=== PATIENT | female | born 1985 ===

== ENCOUNTER 2019-01-13 19:30 | Inpatient (IN) | payer OTHER ==
[~2019-01-13] VITALS: Ht 170.2 cm; Wt 97.2 kg
[2019-01-13] MEDS ORDERED: Verotin-Gr Cap1 EACH (20:34)
[2019-01-13 20:37] LABS: BASOPHILS ABSOLUTE AUTO 0.02 K/mm3 (0.00-0.23); BASOPHILS PERCENT AUTO 0 % (0-2); EOSINOPHILS PERCENT AUTO 1 % (0-6); Hematocrit 39.3 % (33.0-51.0); Hemoglobin 12.9 g/dL (11.5-16.0); IMMATURE GRAN ABSOLUTE AUTO 0.02 K/mm3 (0.00-0.10); IMMATURE GRAN PERCENT AUTO 0 % (0-1); LYMPHOCYTES ABSOLUTE AUTO 2.81 K/mm3 (0.84-5.20); LYMPHOCYTES PERCENT AUTO 29 % (21-46); MONOCYTES PERCENT AUTO 10 % (4-13); Mean Corpuscular HGB 31.9 pg (26.0-34.0); Mean Corpuscular HGB Conc 32.8 g/dL (31.5-36.5); Mean Corpuscular Volume 97 fL (80-100); Mean Platelet Volume 11.9 fL (9.1-12.4); NEUTROPHILS ABSOLUTE AUTO 5.66 K/mm3 (1.96-9.15); NEUTROPHILS PERCENT AUTO 59 % (41-73); Platelet Count 185 K/mm3 (150-400); RDW Standard Deviation 50.4 fL (35.1-46.3); Red Blood Cell Count 4.04 M/mm3 (3.80-5.20); White Blood Cell Count 9.61 K/mm3 (4.00-11.30)
--- NOTE | 2019-01-14 07:15 | NUR ---
ASSUMED PT CARE. PT IN BED HAS NOVI ON TRACING IS REACTIVE, PT IS HAVING UC'S Q 1 1/2-4 MINUTES, PT REPORTS FEELING THEM. PT'S JORGE ALBERTO AT SIDE. LOTS OF TEACHING RELATEED TO LABOR, AUGMENTING, EPIDURALS. PT HAS LAST DELIVERY WITHOUT EPIDURAL, MIGHT BE INTRESTED IN ONE THIS THIME, BUT UNSURE. IS MANAGING HER CARE. BOTH PT AND HER ARE APPROP AND KIND. HX REVIEWED.
--- NOTE | 2019-01-14 08:09 | NUR ---
PT UP TO SHOWER, JOSE CHANGED, NEW GOWN GIVEN. PT DOING OWN SELF CARE. IV WRAPPED, NOVI BATTERY APPLIED.
--- NOTE | 2019-01-14 18:53 | NUR ---
REPAIR STARTED AT 0840. NB AT BR.
--- NOTE | 2019-01-14 19:00 | NUR ---
REPORT TO ONCOMING SHIFT, NO ACUTE CHANGES, PT BRF NB WELL. BEDSIDE REPORT GIVEN TO LITTLE CERVANTES. FF, -2, SCANT BLEEDING. TEACHING ABOUT GETIING UP FOR THE FIRST, BLEEDING AND FEEDING SCHEDULE OF NB.
--- NOTE | 2019-01-14 22:45 | NUR ---
ASSUMED CARE AT [id number] FROM JEYSONRN
[2019-01-15 06:08] LABS: BASOPHILS ABSOLUTE AUTO 0.04 K/mm3 (0.00-0.23); BASOPHILS PERCENT AUTO 0 % (0-2); EOSINOPHILS ABSOLUTE AUTO 0.05 K/mm3 (0.00-0.68); EOSINOPHILS PERCENT AUTO 0 % (0-6); Hematocrit 38.5 % (33.0-51.0); Hemoglobin 12.6 g/dL (11.5-16.0); IMMATURE GRAN ABSOLUTE AUTO 0.05 K/mm3 (0.00-0.10); IMMATURE GRAN PERCENT AUTO 0 % (0-1); LYMPHOCYTES ABSOLUTE AUTO 1.88 K/mm3 (0.84-5.20); LYMPHOCYTES PERCENT AUTO 15 % (21-46); MONOCYTES ABSOLUTE AUTO 1.22 K/mm3 (0.16-1.47); MONOCYTES PERCENT AUTO 10 % (4-13); Mean Corpuscular HGB 31.7 pg (26.0-34.0); Mean Corpuscular HGB Conc 32.7 g/dL (31.5-36.5); Mean Corpuscular Volume 97 fL (80-100); NEUTROPHILS ABSOLUTE AUTO 9.25 K/mm3 (1.96-9.15); NEUTROPHILS PERCENT AUTO 74 % (41-73); Platelet Count 161 K/mm3 (150-400); RDW Coefficient Variation 13.9 % (11.7-14.2); RDW Standard Deviation 49.5 fL (35.1-46.3); Red Blood Cell Count 3.97 M/mm3 (3.80-5.20); White Blood Cell Count 12.49 K/mm3 (4.00-11.30)
--- NOTE | 2019-01-15 13:44 | NUR ---
RX FOR STOOL SOFTNER AND WHITE'S GIVEN TO PTLinda PEDERSON ALSO CALLED INTO PHARMACY
--- NOTE | 2019-01-15 20:13 | NUR ---
RN REVIEWED DISCHARGE PAPERWORK WITH PT AND S.O.. BANDS WERE MATCHED WITH BABY AND PT DENIES ANY QUESTIONS OR CONCERNS AT THIS TIME. RN WALKED PT OUT TO VEHICLE WITH NB.
== END 2019-01-15 20:00 | disposition home or self-care (01) | DRG 807 ==
LOC: BC 19:30
PROVIDERS: ADMIT Obstetrics & Gynecology
PROC: 3E0P7VZ Introduction of Hormone into Female Reproductive, Via Natural or Artificial Opening (ICD-10-PCS; 2019-01-13)
PROC: 10E0XZZ Delivery of Products of Conception, External Approach (ICD-10-PCS; principal; 2019-01-14)
PROC: 10907ZC Drainage of Amniotic Fluid, Therapeutic from Products of Conception, Via Natural or Artificial Opening (ICD-10-PCS; 2019-01-14)
PROC: 3E033VJ Introduction of Other Hormone into Peripheral Vein, Percutaneous Approach (ICD-10-PCS; 2019-01-14)
PROC: 0KQM0ZZ Repair Perineum Muscle, Open Approach (ICD-10-PCS; 2019-01-14)
DX: O24.420 Gestational diabetes mellitus in childbirth, diet controlled (principal); Z37.0 Single live birth; Z3A.39 39 weeks gestation of pregnancy; O70.1 Second degree perineal laceration during delivery; O77.0 Labor and delivery complicated by meconium in amniotic fluid
CPT/HCPCS: 36415; 85025; 86900; 86901; J2590; J7120

== ENCOUNTER 2020-06-07 07:16 | Day surgery (SDC) | payer BC ==
[~2020-06-07] VITALS: Ht 170.2 cm; Wt 86.1 kg
[~2020-06-07 07:16] MED LIST: Verotin-Gr Cap1 EACH
== END 2020-06-07 09:32 | disposition home or self-care (01) ==
LOC: ORSCSDS 07:16
PROVIDERS: Student in an Organized Health Care Education/Training Program
PROC: 0DBN8ZX Excision of Sigmoid Colon, Via Natural or Artificial Opening Endoscopic, Diagnostic (ICD-10-PCS; principal; 2020-06-07 08:30)
PROC: 0DBB8ZX Excision of Ileum, Via Natural or Artificial Opening Endoscopic, Diagnostic (ICD-10-PCS; principal; 2020-06-07 08:30)
PROC: 0DBK8ZX Excision of Ascending Colon, Via Natural or Artificial Opening Endoscopic, Diagnostic (ICD-10-PCS; principal; 2020-06-07 08:30)
PROC: 0DBH8ZX Excision of Cecum, Via Natural or Artificial Opening Endoscopic, Diagnostic (ICD-10-PCS; principal; 2020-06-07 08:30)
DX: K62.5 Hemorrhage of anus and rectum (principal); D12.2 Benign neoplasm of ascending colon; K64.8 Other hemorrhoids
CPT/HCPCS: 88305; J2250; J2405; J2704; J7120

== ENCOUNTER 2024-09-23 08:30 | Day surgery (SDC) | payer BC ==
[~2024-09-23] VITALS: Ht 170.2 cm; Wt 78.4 kg
[~2024-09-23 08:30] MED LIST changes: +Lactated Ringer's 1,000 ML IV ONE
[2024-09-23] MEDS ORDERED: ONDA4 (09:06)
[2024-09-23] MEDS ORDERED: Ondansetron HCl 2 MG / ML 2ML Vial ONE (09:26)
[2024-09-23] MEDS ORDERED: propofoL 50 ML IV ONE ×2 (09:37→10:30)
[2024-09-23] MEDS ORDERED: Lactated Ringer's 1,000 ML IV ONE (09:40)
[2024-09-23 11:38] VITALS: BP 100/86
== END 2024-09-23 11:39 | disposition home or self-care (01) ==
LOC: ORSCSDS 08:30
DX: Z12.11 Encounter for screening for malignant neoplasm of colon (principal); Z86.0101 Personal history of adenomatous and serrated colon polyps; D12.0 Benign neoplasm of cecum; D12.2 Benign neoplasm of ascending colon; K63.5 Polyp of colon; E80.4 Gilbert syndrome; R11.0 Nausea; Z79.899 Other long term (current) drug therapy
CPT/HCPCS: 88305; J2405; J2704; J7120

== ENCOUNTER → 2025-02-20 | Outpatient (CLI) | payer BC ==
[~2025-02-20] MED LIST changes: -Lactated Ringer's 1,000 ML IV ONE; +ONDA4
[2025-02-25 18:09] LABS: CORTISOL,SALIVA <0.025 ug/dL
== END ==
LOC: LAB SHORT 23:05 → LAB 23:05
PROVIDERS: Nurse Practitioner Family
DX: Z78.9 Other specified health status (principal); R53.83 Other fatigue
CPT/HCPCS: 82533

== ENCOUNTER → 2025-02-21 | Outpatient (CLI) | payer BC ==
[2025-02-25 18:09] LABS: CORTISOL,SALIVA <0.025 ug/dL
== END ==
LOC: LAB SHORT 11:05 → LAB 23:05 → LAB SHORT 23:05
PROVIDERS: Nurse Practitioner Family
DX: Z78.9 Other specified health status (principal); R53.83 Other fatigue
CPT/HCPCS: 82533

== ENCOUNTER 2025-03-14 09:49 | Day surgery (SDC) | payer BC ==
[~2025-03-14] VITALS: Ht 170.2 cm; Wt 81.0 kg
[2025-03-14] MEDS ORDERED: Tranexamic Acid 100 ML IV ONE (09:57)
[2025-03-14] MEDS ORDERED: CeFAZolin Sodium 2,000 MG VIAL ONE (09:59)
[2025-03-14] MEDS ORDERED: FentaNYL Citrate 50 MCG/ML 2 ML Injection ONE (10:22)
[2025-03-14] MEDS ORDERED: Dexamethasone Sod Phos 10 MG/ML 1ML VIAL ONE (10:23)
[2025-03-14] MEDS ORDERED: Ketorolac Tromethamine 30mg Vial ONE (10:23)
[2025-03-14] MEDS ORDERED: Rocuronium Bromide 10 MG/ML 5ML Injection IV ONE (10:23)
[2025-03-14] MEDS ORDERED: Ondansetron HCl 2 MG / ML 2ML Vial ONE ×2 (10:23→15:48)
[2025-03-14] MEDS ORDERED: Bupivacaine HCl 0.25% 30 ML Injection ONE (10:24)
--- NOTE | 2025-03-14 10:47 | NUR ---
03/14/25 1047 ZEFERINO KIM TIME OUT FOR BLOCK WITH DR MONROY: 1038 START OF BLOCK: 1043 END OF BLOCK: 1043
[2025-03-14] MEDS ORDERED: Sugammadex Sodium 200 MG/2ML SDV (100 MG/ML) ONE (11:05)
[2025-03-14] MEDS ORDERED: Vancomycin HCl 1000 MG ADDvantage ONE (11:15)
[2025-03-14] MEDS ORDERED: HYDROmorphone HCl/Pf 1MG SYR ONE (12:39)
[2025-03-14] MEDS ORDERED: CeFAZolin Sodium 1000 mg Vial ONE (15:06)
--- NOTE | 2025-03-14 15:46 | NUR ---
03/14/25 1546 Moira Rausch UPON ARRIVAL TO PACU, PT LETHARGIC. 1543 - PT RESPONDING TO STIMULI, WIGGLING TOES, (+) PEDAL PULSE, (+) CAP REFILL
--- NOTE | 2025-03-14 16:11 | NUR ---
03/14/25 1611 Moira Rausch 1610 - HOB RAISED FROM FLAT TO 30 DEG
[2025-03-14] MEDS ORDERED: DiphenhydrAMINE HCl 50 MG/ML 1ML Vial ONE (17:47)
[2025-03-14 18:44] VITALS: BP 107/66
== END 2025-03-14 18:44 | disposition home or self-care (01) ==
LOC: ORSCSDS 09:49
PROVIDERS: Orthopaedic Surgery Sports Medicine
PROC: 0QR Lower Bones, Replacement (ICD-10-PCS; principal; 2025-03-14 11:15)
PROC: 0MRN47Z Replacement of Right Knee Bursa and Ligament with Autologous Tissue Substitute, Percutaneous Endoscopic Approach (ICD-10-PCS; principal; 2025-03-14 11:15)
PROC: 0QP104Z Removal of Internal Fixation Device from Sacrum, Open Approach (ICD-10-PCS; principal; 2025-03-14 11:15)
DX: S83.511D Sprain of anterior cruciate ligament of right knee, subsequent encounter (principal); S83.241D Other tear of medial meniscus, current injury, right knee, subsequent encounter; M23.91 Unspecified internal derangement of right knee; M25.561 Pain in right knee; J45.909 Unspecified asthma, uncomplicated; Z79.51 Long term (current) use of inhaled steroids
CPT/HCPCS: A9270; C1713; C1762; C1889; J0166; J0690; J1100; J1171; J1200; J1885; J2405; J2704; J3010; J3373; J7120